=== PATIENT | female | born 1985 | race Caucasian/White ===

== ENCOUNTER → 2023-02-14 10:10 | Outpatient (CLI) | payer OTHER, SELFPAY ==
[2023-02-14 11:00] LABS: Add Manual Diff / Slide Review NO; Basophils Absolute Auto 0 /uL (0-100); Basophils Percent Auto 0.5 % (0-2); Eosinophils Absolute Auto 200 /uL (0-450); Eosinophils Percent Auto 2.5 % (2-4); Hematocrit 35.1 % (36-46); Hemoglobin 12.2 g/dL (12.0-16.0); Lymphocytes Absolute Auto 1600 /uL (1100-4500); Lymphocytes Percent Auto 21.9 % (25-40); Mean Corpuscular HGB Conc 34.9 % (30-36); Mean Corpuscular Hemoglobin 29.9 PG (26-34); Mean Corpuscular Volume 85.6 fL (80-100); Monocytes Absolute Auto 500 /uL (0-900); Monocytes Percent Auto 6.9 % (3-14); Neutrophils Absolute Auto 4900 /uL (1500-7000); Neutrophils Percent Auto 68.2 % (50-75); Platelet Count 179 X10^3/uL (150-400); Red Blood Cell Count 4.09 X10^6/uL (4.0-5.2); Red Cell Distribution Width 14.1 % (11.6-14.8); White Blood Cell Count 7.1 X10^3/uL (4.5-11.0)
[2023-02-14 12:48] LABS: Hepatitis B Surface Antigen NEGATIVE s/c (NEGATIVE); Rubella Antibody IgG 27.6 IU/mL (>15)
[2023-02-14 13:03] LABS: HIV 1 & 2 Ab/Ag 4th Gen Combo NEGATIVE (NEGATIVE); Hep C Virus Ab w/Reflex Quant NEGATIVE s/c (NEGATIVE)
[2023-02-15 10:34] LABS: Varicella IgG Antibody 1854 index (Immune >165)
[2023-02-16 09:05] LABS: RPR Screen Non Reactive (Non Reactive)
== END ==
PROVIDERS: Obstetrics & Gynecology; Referring Provider Specialist; Visit Provider Specialist
DX: Z34.81 Encounter for supervision of other normal pregnancy, first trimester (principal)
CPT/HCPCS: 80055; 86787; 86803; 86850; 86900; 86901; 87086; 87389

== ENCOUNTER → 2023-04-11 10:55 | Outpatient (CLI) | payer OTHER, SELFPAY ==
[2023-04-13 21:42] LABS: AFP Value 25.9 ng/mL (.); Gest Age on Col Date 18.4 weeks (.); Insulin Dep Diabetes No (.); OSBR Risk 1IN 10000 (.); Results Report (.); Test Results *Screen Negative* (.)
== END ==
PROVIDERS: Referring Provider Obstetrics & Gynecology; Visit Provider Obstetrics & Gynecology
DX: Z34.82 Encounter for supervision of other normal pregnancy, second trimester (principal); Z3A.18 18 weeks gestation of pregnancy
CPT/HCPCS: 36415; 82105

== ENCOUNTER → 2023-04-24 10:18 | Outpatient (CLI) | payer OTHER, SELFPAY ==
--- NOTE | 2023-04-24 10:19 | DI.US.S_ITS ---
PROCEDURE: US OB >= 14 WEEKS FETUS INDICATIONS: 20 week anatomy OUTSIDE/PRIOR DATING DATA: Last menstrual period (LMP): 12/03/2022. LMP-based estimated date of delivery (RADHA): 09/09/2023. First dating scan (date and location): 02/14/2023. Estimated date of delivery (RADHA) from first dating scan: 08/07/2023. The calculations are made using the clinical RADHA of 08/09/2023. TECHNIQUE: Real-time scanning was performed of the fetus, with image documentation and biometric measurements. COMPARISON: [facility], , OB <= 14 WEEKS FETUS, 02/14/2023, 10:00. FINDINGS: General: A single living intrauterine gestation is present. Presentation: Vertex. Placenta: Placental position is anterior , without previa. Amniotic fluid index: 15.3 cm, normal range is 5-24 cm. Single deepest vertical pocket is 4.8 cm. heart rate: 155 beats per minute. Maternal cervical canal: 3.5 cm long. Normal lower limit is 2.5 cm. biometrics: Biparietal diameter: 4.6 cm 20 weeks 0 days Head circumference: 18.5 cm 20 weeks 6 days Abdominal circumference: 16.2 cm 21 weeks 2 days Femur length: 3.8 cm 22 weeks 0 days Clinically estimated gestational age: 20 weeks 2 days Composite gestational age from present scan: 21 weeks 0 days Estimated weight and percentile: 427 g, 96th percentile Anatomic survey: Neuro: Ventricles are non-dilated at less than 10 mm. Cisterna magna is normal at 3-11 mm. Cerebellum is normal in size and morphology. Nuchal skin fold: Normal at less than 6 mm between 14-21 weeks gestational age. Face: Nose and lips, facial profile are normal. Spine: No evidence for spina bifida. Heart: 4-chambered heart is present, with normal ventricular outflow tracts. Diaphragm: Diaphragm is intact. Stomach: Left-sided stomach is present. Kidneys: No hydronephrosis. Normal is less than 5 mm in 2nd trimester, less than 7 mm in 3rd trimester. Cord: 3-vessel cord has orthotopic insertion. Bladder: Normal in size. Extremities: All 4 extremities identified. IMPRESSION: Single live intrauterine with ultrasound gestational age today of 21 weeks 6 days. Anatomy is within normal limits. We strive to produce accurate, complete, and clear reports of imaging services. To assist us in improving patient care, this report was composed using standard report templates and voice recognition software. Therefore, it may contain abnormal punctuation, insertions and/or omissions. Occasional wrong-word or sound-alike substitutions may occur. Though we review the report and make efforts to correct it, we do recommend that the report be read carefully in proper context to recognize any text inaccuracies. Dictated by: Rachel Seymour M.D. on 04/24/2023 at 17:17 Approved by: Rachel Seymour M.D. on 04/24/2023 at 17:19
== END ==
PROVIDERS: Referring Provider Obstetrics & Gynecology; Visit Provider Obstetrics & Gynecology
DX: Z34.82 Encounter for supervision of other normal pregnancy, second trimester (principal); Z3A.21 21 weeks gestation of pregnancy
CPT/HCPCS: 76811

== ENCOUNTER → 2023-05-31 15:23 | Outpatient (CLI) | payer OTHER, SELFPAY ==
[2023-05-31 17:50] LABS: Hematocrit 33.5 % (36-46); Hemoglobin 11.5 g/dL (12.0-16.0)
[2023-05-31 18:11] LABS: GTT (PREG) 1 Hour PP 50gm Dose 131 mg/dL (76-139)
== END ==
PROVIDERS: Referring Provider Obstetrics & Gynecology; Visit Provider Obstetrics & Gynecology
DX: Z34.82 Encounter for supervision of other normal pregnancy, second trimester (principal); Z3A.26 26 weeks gestation of pregnancy
CPT/HCPCS: 82950; 85014; 85018

== ENCOUNTER → 2023-06-06 12:09 | Outpatient (CLI) | payer OTHER, SELFPAY ==
[2023-06-15 09:16] LABS: Factor V Leiden Mutation See below: (.)
== END ==
PROVIDERS: Referring Provider Obstetrics & Gynecology; Visit Provider Obstetrics & Gynecology
DX: Z34.90 Encounter for supervision of normal pregnancy, unspecified, unspecified trimester (principal); Z3A.22 22 weeks gestation of pregnancy; Z83.2 Family history of diseases of the blood and blood-forming organs and certain disorders involving the immune mechanism
CPT/HCPCS: 36415; 81241

== ENCOUNTER → 2023-08-23 12:28 | Outpatient (CLI) | payer OTHER, SELFPAY ==
--- NOTE | 2023-08-23 17:25 | PC.NURSE ---
Pt called to try and schedule weekly non stress tests and possible induction for the week of per Dr. Arroyo. Pt is not interested in scheduling an induction at this time and forgot to schedule her appointment with Dr. Arroyo for next week. Pt states she will call and make her appointment with Dr. Arroyo tomorrow then call the center to make an appointment for her non stress test to follow appointment.
== END ==
PROVIDERS: Visit Provider Obstetrics & Gynecology
DX: R82.998 Other abnormal findings in urine (principal)
CPT/HCPCS: 87086

== ENCOUNTER → 2023-09-05 14:54 | Outpatient (CLI) | payer OTHER, SELFPAY ==
[2023-09-06 12:38] LABS: Strep Grp B PCR NEG for Grp B Strep
== END ==
PROVIDERS: Visit Provider Obstetrics & Gynecology
DX: Z34.03 Encounter for supervision of normal first pregnancy, third trimester (principal); Z3A.39 39 weeks gestation of pregnancy
CPT/HCPCS: 87653

== ENCOUNTER → 2023-09-05 15:12 | Outpatient (CLI) | payer OTHER, SELFPAY ==
--- NOTE | 2023-09-05 15:13 | DI.US.S_ITS ---
PROCEDURE: US OB >= 14 WEEKS FETUS INDICATIONS: SIZE GREARTER THAN DATES OUTSIDE/PRIOR DATING DATA: Last menstrual period (LMP): 12/03/2022. LMP-based estimated date of delivery (RADHA): 09/09/2023. First dating scan (date and location): 02/14/2023. Estimated date of delivery (RADHA) from first dating scan: 09/07/2023. The calculations are made using the LMP RADHA of 09/09/2023. TECHNIQUE: Real-time scanning was performed of the fetus, with image documentation and biometric measurements. COMPARISON: [facility], OB >= 14 WEEKS FETUS, 04/24/2023, 10:26. FINDINGS: General: A single living intrauterine gestation is present. Presentation: Vertex. Placenta: Placental position is anterior , without previa. Amniotic fluid index: 11.7 cm, normal range is 5-24 cm. Single deepest vertical pocket is 3.5 cm. heart rate: 168 beats per minute. Maternal cervical canal: 3.5 cm long. Normal lower limit is 2.5 cm. biometrics: Biparietal diameter: 9.0 cm. 36 weeks 3 days Head circumference: 33.7 cm. 38 weeks 4 days Abdominal circumference: 34.6 cm. 38 weeks 4 days Femur length: 7.8 cm. 39 weeks 5 days Clinically estimated gestational age: 39 weeks 3 days Composite gestational age from present scan: 38 weeks 2 days Estimated weight and percentile: 3519 g. 50th percentile. IMPRESSION: 1. Single live intrauterine with a composite ultrasound age of 38 weeks 2 days and estimated gestational age of 39 weeks 3 days. 2. Estimated weight 3519 g. We strive to produce accurate, complete, and clear reports of imaging services. To assist us in improving patient care, this report was composed using standard report templates and voice recognition software. Therefore, it may contain abnormal punctuation, insertions and/or omissions. Occasional wrong-word or sound-alike substitutions may occur. Though we review the report and make efforts to correct it, we do recommend that the report be read carefully in proper context to recognize any text inaccuracies. Dictated by: Dallas Huerta M.D. on 09/05/2023 at 16:16 Approved by: Dallas Huerta M.D. on 09/05/2023 at 16:20
== END ==
PROVIDERS: Referring Provider Obstetrics & Gynecology; Visit Provider Obstetrics & Gynecology
DX: O26.843 Uterine size-date discrepancy, third trimester (principal); Z3A.38 38 weeks gestation of pregnancy
CPT/HCPCS: 76816

== ENCOUNTER 2023-09-05 15:52 | Outpatient (CLI) | payer OTHER, SELFPAY | END 2023-09-05 16:45 | disposition home or self-care (01) | LOC: LABOR 16:42 → OB 09-14 16:05 | PROVIDERS: Referring Provider Obstetrics & Gynecology; Visit Provider Obstetrics & Gynecology | DX: O09.523 Supervision of elderly multigravida, third trimester (principal); Z3A.39 39 weeks gestation of pregnancy; O26.843 Uterine size-date discrepancy, third trimester; Z3A.38 38 weeks gestation of pregnancy | CPT/HCPCS: 59025; 76816; 87653; G0378; G0379 ==

== ENCOUNTER 2023-09-07 05:48 | Observation (INO) | payer OTHER, SELFPAY ==
--- NOTE | 2023-09-07 07:30 | PM.OBTRLD ---
Visit Information Visit Information Date of evaluation: 09/07/23 On-call OB Provider: Guera Wadsworth Reason for Evaluation: Yes rule out labor Comments/Additional reasons for admission: 37yo at 40+0wks here for r/o labor. Had painful ctx this morning, thus came in for evaluation. Vital Signs Vital Signs: BP 135/70, HR 90 PFSH Medical History (Updated 09/07/23 @ 07:33 by Guera Wadsworth DO) Sleep apnea Spina bifida Surgical History (Updated 02/07/23 @ 09:47 by Radha Pereira RN) [place] teeth extracted Family History (Updated 02/07/23 @ 09:52 by Radha Pereira RN) Mother Factor V deficiency, congenital Diabetes mellitus Hypertension DVT (deep venous thrombosis) Father Lung cancer Colon cancer Social History marital status: number of children: 4 lives independently: Yes caregiver/support person: Yes housing: house pets and animals: Yes (1 dog) education level: college occupational status: unemployed current occupational exposures/hazards: No 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/rastafarian: 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 special maddi needs: No travel history: recent seatbelt use: always water heater temp set < 120 deg: Yes working smoke detector in home: Yes fire extinguisher in home: Yes carbon monox detector in home: Yes firearms in home: No do you feel safe at home: Yes Smoking Status: Never smoker second hand exposure: No alcohol intake: former substance use type: does not use during the past year weight has: increased > 10 lbs well-balanced diet: daily or most days daily servings fruits/ve-4 caffeine: Yes (1 cup coffee in AM) Type(s) of exercise: walking and yoga Review of Systems Review of Systems ROS: Yes All systems reviewed with the patient and are negative except as otherwise documented Evaluation Evaluation Baseline heart rate: 140 Variability: Moderate (11-25) monitor accelerations: Present Monitor Decelerations: Variable (x1, no further decels after 30min monitoring) Contraction Frequency (minutes): 30 Uterine Contraction Intensity: Mild Category of Tracing: Reactive Cervical dilation (cm): 2 Cervical effacement (%): 70 station: -1 Diagnosis, Plan/Disposition Final Diagnosis (1) False labor after 37 completed weeks of gestation: Status: Acute Plan/Disposition Plan: 37yo at 40+0wks here for r/o labor. Reactive NST with 1 variable decel noted, with no further decels after 30 more min of monitoring. SVE 2.5/70/-1 per nursing. -since pt lives 40min away, pt will walk and return in 2hrs for recheck
[2023-09-07] MEDS: MORPHINE 10 MG/ML INJ IM (08:12)
== END 2023-09-07 08:30 | disposition home or self-care (01) ==
LOC: LABOR 05:50
PROVIDERS: Admitting Provider Student in an Organized Health Care Education/Training Program; Referring Provider Student in an Organized Health Care Education/Training Program; Visit Provider Student in an Organized Health Care Education/Training Program
DX: O47.1 False labor at or after 37 completed weeks of gestation (principal); O48.0 Post-term pregnancy; Z3A.40 40 weeks gestation of pregnancy
CPT/HCPCS: 59025; 96372; G0378; G0379; J2270

== ENCOUNTER 2023-09-07 23:57 | Observation (INO) | payer OTHER, SELFPAY ==
[2023-09-08] MEDS: MORPHINE 10 MG/ML INJ IM (01:43)
== END 2023-09-08 02:40 | disposition home or self-care (01) ==
LOC: LABOR 09-08
PROVIDERS: Admitting Provider Obstetrics & Gynecology; Referring Provider Obstetrics & Gynecology; Visit Provider Obstetrics & Gynecology
DX: O47.1 False labor at or after 37 completed weeks of gestation (principal); O48.0 Post-term pregnancy; Z3A.40 40 weeks gestation of pregnancy
CPT/HCPCS: 59025; 96372; G0378; G0379; J2270